=== PATIENT | male | born 1955 | race Caucasian/White ===

== ENCOUNTER 2016-12-24 18:15 | Emergency (ER) | payer OTHER ==
[~2016-12-24] VITALS: Ht 177.8 cm; Wt 158.8 kg
[2016-12-24] MEDS ORDERED: EPINEPHrine 1mg/10ml carp IV ONE (18:45)
[2016-12-24] MEDS ORDERED: Sodium Bicarbonate 8.4% 50ml Carp ONE (18:45)
[2016-12-24] MEDS ORDERED: Calcium Chloride 10% 10ml carpuject IVP ONE (18:45)
[2016-12-24 19:49] VITALS: BP 0/0
--- NOTE | 2016-12-24 23:10 | Emergency Room Report ---
History of Present Illness General Chief Complaint: CPR Source: EMS Present Illness HPI 61-year-old male presents in cardiac arrest. Per EMS patient had witnessed agonal breathing by family at 5:10 PM tonight. When EMS responded patient was not responsive, in ventricular fibrillation. Patient was then shocked and patient then went into PEA. compressions started. Patient was intubated in the field. Patient was given epi x4 in the field. Given bicarbonate. Upon arrival patient remains in asystole. chest compressions in progress. states that patient has no medical problems. Son states that patient has been more sleepy than usual for the last several weeks but he is unaware of any specific medical problems. No other aggravating or relieving factors. No other associated symptoms Allergies: Coded Allergies: No Known Allergies (Unverified , 12/24/16) Patient History Past Medical History: none Past Surgical History: none Pertinent Family History: none Social History: Denies: alcohol use, drug use, smoking Immunizations: UTD Reviewed Nursing Documentation: PMH: Agreed, PSxH: Agreed Nursing Documentation-PMH Past Medical History Deferred: No Family Available Past Medical History: Deferred Review of Systems All Other Systems: limited Physical Exam Vital Signs Date Time Temp Pulse Resp B/P Pulse Ox O2 Delivery O2 Flow Rate FiO2 12/24/16 18:10 0 45 30 Ambu-Bag 12/24/16 19:49 0/0 Sp02 EP Interpretation: abnormal General Appearance: other - unresponsiv Head: normocephalic Eyes: bilateral eye PERRL, bilateral eye normal inspection ENT: other - intubated Neck: normal inspection Respiratory: other - intubated, equal breath sounds with ventilation Cardiovascular #1: other - asystole Gastrointestinal: normal inspection Rectal: deferred Genitourinary: no CVA tenderness Musculoskeletal: swelling - 2+ pitting edema b/l EL Neurologic: other - unresponsive Psychiatric: other - unresponsive Skin: pallor, cyanosis Lymphatic: normal inspection Procedures Critical Care Time Critical Care Time i. I feel this is a highly complex case requiring extensive working including EKG/Rhythm strip, Xray/CT/US, Blood/urine lab work, repeat exams while in ED, and administration of strong opiates/narcotics for pain control, admission to hospital or close patient follow up. Total time: 30 min bedside evaluation and treatment excludes procedures (EKG). Reason for critical care: Cardiac arrest Possible complications: hypotension, hypertension, ME, shock, arrhythmias, metabolic acidosis, end organ damage, respiratory failure. Interventions: epi x 5, bicarbonate. compressions. Course: Patient brought in cardiac arrest. Patient in asystole upon arrival. Patient initially given epi x4, bicarbonate. Patient intubated in the field. Patient given epi x5 here, chest compressions continued. After multiple rhythm checks patient remains in asystole. Family at bedside aware of poor prognosis. Agreed to discontinue efforts. Patient Consultations: nursing staff, EMS, family Performed by: Dr Taveras Tolerated well condition = expires j. because of unstable vital signs this patient had a condition that could potentially threaten life or limb. I feel this is a critical patient who required my full attention while patient was considered critical. Total Critical Care Time excluding procedures was greater than 35 minutes CPR/Code Blue CPR/Code Blue Narrative see code blue sheet Medical Decision Making Diagnostic Impression: Primary Impression: cardio-pulmonary arrest ER Course Patient brought in cardiac arrest. Initially patient was vomiting as per and then became agonal breathing. EMS noted ventricular fibrillation and shock the patient once. Patient then went into PEA. Patient in asystole upon arrival. Patient intubated in the field. Patient has intraosseous access in the leg. Patient given epi x5 in the ER. Given bicarbonate. Accu-Chek within normal limits. At this point patient downtime proximally one hour. Prognosis is poor. Patient is cyanotic around the face since arrival. Family at bedside and understand poor prognosis. Agreed to discontinue efforts. Patient expires Last Vital Signs Date Time Temp Pulse Resp B/P Pulse Ox O2 Delivery O2 Flow Rate FiO2 12/24/16 19:49 0 0 0/0 30 Ambu-Bag Status: worsened Disposition: Condition: Referrals: NON PHYSICIAN (PCP) ALLISON TAVERAS M.D. Dec 24, 2016 23:10
== END 2016-12-24 21:00 | disposition expired ==
LOC: EDBD 18:15 → EMR 18:44
DX: I46.9 Cardiac arrest, cause unspecified (principal)
CPT/HCPCS: 92950; 99291; J0171; J3490